=== PATIENT | female | born 1995 ===

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

== ENCOUNTER 2017-01-21 11:33 | Emergency (ER) | payer OTHER ==
[2017-01-21 11:39] VITALS: BMI 26.2
[2017-01-21 12:18] VITALS: PULSE 88; RESP 18; TEMP 97.9
[2017-01-21 12:20] VITALS: O2SAT 100
--- NOTE | 2017-01-21 12:20 | ED PDOC ---
HPI: General Adult Time Seen by Provider: 01/21/17 12:10 Chief Complaint (Provider): Abscess on Left Groin History Per: Patient History/Exam Limitations: no limitations Current Symptoms Are (Timing): Still Present Additional Complaint(s): Hilary Santiago is a 22 year old female that presents to the ED with a chief complaint of an abscess present on her left groin. Patient reports that she has a history of abscesses in that area, and rates her current current pain to be a 10/10. Abscess has been presents for one week. Patient denies any fever, chills or active drainage. Past Medical History Reviewed: Historical Data, Nursing Documentation, Vital Signs Vital Signs: Last Vital Signs Temp 97.9 F 01/21/17 12:16 Pulse 88 01/21/17 12:16 Resp 18 01/21/17 12:16 BP 99/52 L 01/21/17 12:21 Pulse Ox 100 01/21/17 13:15 - Medical History PMH: No Chronic Diseases - Family History Family History: States: No Known Family Hx - Living Arrangements Living Arrangements: With Family - Social History Current smoker - smoking cessation education provided: Yes Alcohol: None Drugs: Denies - Immunization History Hx Tetanus Toxoid Vaccination: Yes - Home Medications Home Medications: Ambulatory Orders Medication Instructions Recorded Multivit/Folic Acid/I 1 tab PO DAILY 10/08/15 [ Plus] Docusate [Colace] 100 mg PO BID #60 cap 02/26/16 Ferrous Sulfate [Feosol] 325 mg PO BID #60 tab 02/26/16 Ibuprofen [Motrin Tab] 600 mg PO Q6 PRN #40 tab 02/26/16 traMADol [Ultram] 50 mg PO Q6 #16 tab 03/03/16 Clindamycin [Cleocin] 300 mg PO Q6 #28 cap 11/22/16 Ibuprofen [Motrin Tab] 1 tab PO Q6 PRN #20 tab 11/23/16 Clindamycin [Cleocin] 300 mg PO TID #21 cap 01/21/17 Ibuprofen [Motrin Tab] 800 mg PO Q8 PRN #20 tab 01/21/17 traMADol [Ultram] 50 mg PO TID PRN #15 tab 01/21/17 - Allergies Allergies/Adverse Reactions: Allergies Allergy/AdvReac Type Severity Reaction Status Date / Time No Known Allergies Allergy Verified 11/22/16 18:26 Review of Systems ROS Statement: Except As Marked, All Systems Reviewed And Found Negative Constitutional: Negative for: Fever, Chills Skin: Positive for: Other (Abscess present to left groin area) Physical Exam - Reviewed Nursing Documentation Reviewed: Yes Vital Signs Reviewed: Yes - Physical Exam Appears: Positive for: Non-toxic, No Acute Distress Head Exam: Positive for: ATRAUMATIC, NORMOCEPHALIC Skin: Positive for: Normal Color, Warm. Negative for: Rash Eye Exam: Positive for: Normal appearance, EOMI, PERRL Pelvic Exam: Positive for: Other (3 cm fluctuant abscess present to left groin area with no active drainage. Localized erythema with no erythematous streaking. ) Extremity: Positive for: Normal ROM Neurologic/Psych: Positive for: Alert, Oriented. Negative for: Motor/Sensory Deficits - Laboratory Results Urine POC: Negative - ECG O2 Sat by Pulse Oximetry: 100 (RA) Pulse Ox Interpretation: Normal Medical Decision Making Medical Decision Making: Impression: Abscess Present to Left Groin Area Plan: * Urine test * I&D * PO tramadol and clindamycin * IM toradol 13:05 Performed I&D on abscess, patient tolerated procedure well with no immediate complications. Patient advised to keep packing in place and to change outer gauze only. Patient given Rx for Clindamycin, Toradol, and Ultram, and advised to return to ED in 2 days. Stable for discharge home. Scribe Attestation: Documented by Sheila Montoya, acting as a scribe for Ann Hoffmann PA-C. Provider Scribe Attestation: All medical record entries made by the Scribe were at my direction and personally dictated by me. I have reviewed the chart and agree that the record accurately reflects my personal performance of the history, physical exam, medical decision making, and the department course for this patient. I have also personally directed, reviewed, and agree with the discharge instructions and disposition. Procedures - Incision and Drainage Site: Left groin area Blade Size: 11 I & D Procedure: betadine prep (+ 2% lido w/ epi, 10 ccs), sterile drapes applied, sterile dressing applied Progress: Under sterile conditions, abscess was anesthetized with 10 cc of lidocaine with epi, good anesthesia was achieved. A small incision was made overlying area of fluctuance, moderate amount of purulent discharge was expressed. Wound was then explored for loculations using curved hemostat, additional small amount of discharge expressed. Wound was then irrigated with saline and betadine and then packed with 1/2 iodoform packing. Sterile dressing applied. Procedure was tolerated well by patient with no immediate complications. Disposition - Clinical Impression Clinical Impression: Abscess - Patient ED Disposition Is Patient to be Admitted: No Counseled Patient/Family Regarding: Diagnosis, Need For Followup, Rx Given - Disposition Referrals: [facility] [Outside] Disposition: Routine/Home Disposition Time: 13:05 Condition: STABLE Additional Instructions: Keep packing in place and change outer gauze only. Take rx meds as directed. Return in 2 days for wound re-check and packing removal. Prescriptions: Clindamycin [Cleocin] 300 mg PO TID #21 cap Ibuprofen [Motrin Tab] 800 mg PO Q8 PRN #20 tab PRN Reason: Pain, Moderate (4-7) traMADol [Ultram] 50 mg PO TID PRN #15 tab PRN Reason: Pain, Moderate (4-7) Instructions: Breast Abscess Drainage (ED), Abscess (ED)
[2017-01-21 12:22] VITALS: BP 99/52
[2017-01-21] MEDS ORDERED: Lidocaine 2% w Epi 1:100,000 Inj IJ ONE (12:23)
[2017-01-21] MEDS ORDERED: Lidocaine 2% w Epi 1:100,000 Inj IJ STA (12:27)
[2017-01-21] MEDS ORDERED: Iodoform 1/2inx15ft BOT EXT ONE (12:36)
== END 2017-01-21 13:13 | disposition home or self-care (01) ==
LOC: H.ER 11:33
DX: L02.214 Cutaneous abscess of groin (principal)
CPT/HCPCS: 81025; 96372; 99283; J1885

== ENCOUNTER 2017-05-22 22:46 | Emergency (ER) | payer OTHER ==
[2017-05-22 22:46] VITALS: BMI 26.2
[2017-05-22 23:03] VITALS: BP 109/72; PULSE 87; RESP 17; TEMP 99.7; O2SAT 99
--- NOTE | 2017-05-22 23:25 | ED PDOC ---
HPI: CCC, URI, Sore Throat Time Seen by Provider: 05/22/17 23:06 Chief Complaint (Nursing): ENT Problem History Per: Patient History/Exam Limitations: no limitations Onset/Duration Of Symptoms: Days (4) Additional Complaint(s): 22 yo F s/p dental extraction of L upper and lower wisdom teeth 4 days ago, c/o continued pain despite taking motrin, states that she did see her dentist again today regarding her symptoms and was Rx a muscle relaxer. Denies any headache, fever, chills, throat pain / swelling, SOB, dsypnea. Has no other complaints. Past Medical History Vital Signs: Last Vital Signs Temp 99.7 F H 05/22/17 22:59 Pulse 87 05/22/17 22:59 Resp 17 05/22/17 22:59 BP 109/72 05/22/17 22:59 Pulse Ox 99 05/22/17 22:59 - Medical History PMH: No Chronic Diseases - Family History Family History: States: Unknown Family Hx - Immunization History Hx Tetanus Toxoid Vaccination: Yes Hx Influenza Vaccination: No Hx Pneumococcal Vaccination: No - Home Medications Home Medications: Ambulatory Orders Medication Instructions Recorded Multivit/Folic Acid/I 1 tab PO DAILY 10/08/15 [ Plus] Docusate [Colace] 100 mg PO BID #60 cap 02/26/16 Ferrous Sulfate [Feosol] 325 mg PO BID #60 tab 02/26/16 Ibuprofen [Motrin Tab] 600 mg PO Q6 PRN #40 tab 02/26/16 traMADol [Ultram] 50 mg PO Q6 #16 tab 03/03/16 Clindamycin [Cleocin] 300 mg PO Q6 #28 cap 11/22/16 Ibuprofen [Motrin Tab] 1 tab PO Q6 PRN #20 tab 11/23/16 Clindamycin [Cleocin] 300 mg PO TID #21 cap 01/21/17 Ibuprofen [Motrin Tab] 800 mg PO Q8 PRN #20 tab 01/21/17 traMADol [Ultram] 50 mg PO TID PRN #15 tab 01/21/17 traMADol [Ultram] 50 mg PO TID PRN #12 tab 05/22/17 - Allergies Allergies/Adverse Reactions: Allergies Allergy/AdvReac Type Severity Reaction Status Date / Time No Known Allergies Allergy Verified 11/22/16 18:26 Review of Systems Constitutional: Negative for: Fever, Chills, Malaise ENT: Positive for: Mouth Pain, Other (dental pain). Negative for: Ear Pain, Nose Discharge, Mouth Swelling, Throat Pain Cardiovascular: Negative for: Chest Pain, Palpitations Respiratory: Negative for: Cough, Shortness of Breath Musculoskeletal: Negative for: Neck Pain Skin: Negative for: Rash, Lesions Physical Exam - Physical Exam Appears: Positive for: Well, Non-toxic, In Acute Distress (mild painful distress ) Skin: Positive for: Normal Color, Warm, Dry ENT: Positive for: Normal ENT Inspection, TM Is/Are (wnl), Other (+mild edema to the gum line of the upper and lower molars with no evidence of infection). Negative for: Pharyngeal Erythema, Tonsillar Exudate, Tonsillar Swelling Neck: Positive for: Normal, Supple Cardiovascular/Chest: Positive for: Regular Rate, Rhythm Respiratory: Positive for: Normal Breath Sounds. Negative for: Rales, Rhonchi, Wheezing - ECG O2 Sat by Pulse Oximetry: 99 Medical Decision Making Medical Decision Making: Patient medicated with tramadol 50 mg PO. Advised to follow up with her dentist tomorrow without fail. Advised to take medication as prescribed. Return to the emergency room at any time for any new or worsening symptoms. Patient states she fully agrees with and understands discharge instructions. States that she agrees with the plan and disposition. Verbalized and repeated discharge instructions and plan. I have given the patient opportunity to ask any additional questions. Disposition - Clinical Impression Clinical Impression: Pain, dental - Patient ED Disposition Is Patient to be Admitted: No Counseled Patient/Family Regarding: Diagnosis, Need For Followup, Rx Given - Disposition Disposition: Routine/Home Disposition Time: 23:30 Condition: STABLE Additional Instructions: Thank you for letting us take care of you today. You were treated for dental pain. The emergency medical care you received today was directed at your acute symptoms. If you were prescribed any medication, please fill it and take as directed. It may take several days for your symptoms to resolve. Return to the Emergency Department if your symptoms worsen, do not improve, or if you have any other problems. Please contact your dentist tomorrow for re-evaluation and follow up. Bring any paperwork you were given at discharge with you along with any medications you are taking to your follow up visit. Our treatment cannot replace ongoing medical care by a primary care provider (PCP) outside of the emergency department. Thank you for allowing the [facility] team to be part of your care today. 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
== END 2017-05-22 23:30 | disposition home or self-care (01) ==
LOC: H.ER 22:46
DX: K08.89 Other specified disorders of teeth and supporting structures (principal)

== ENCOUNTER 2017-07-06 07:18 | Emergency (ER) | payer OTHER ==
[2017-07-06 07:18] VITALS: BMI 26.2
[2017-07-06 08:50] LABS: BASO % 0.3 % (0.0-2.0); EOS # 0.1 K/uL (0.0-0.7); HEMOGLOBIN 11.7 g/dL (12.0-16.0); LYMPH # 2.8 K/uL (1.0-4.3); LYMPH % 38.8 % (20.0-40.0); MEAN CELL VOLUME 85.3 fl (81.0-99.0); MEAN CORPUSCULAR HEMOGLOBIN 28.9 pg (27.0-31.0); MEAN CORPUSCULAR HGB CONC 33.8 g/dL (33.0-37.0); MEAN PLATELET VOLUME 10.3 fl (7.2-11.7); MONO # 0.6 K/uL (0.0-0.8); MONO % 8.5 % (0.0-10.0); NEUT # 3.7 K/uL (1.8-7.0); NEUT % 50.4 % (50.0-75.0); NRBC % 0.2 % (0.0-0.0); RBC 4.06 Mil/uL (3.80-5.20); RED CELL DISTRIBUTION WIDTH 13.4 % (11.5-14.5); WHITE BLOOD COUNT 7.2 K/uL (4.8-10.8)
[2017-07-06 09:02] LABS: BLOOD UREA NITROGEN 17 mg/dl (7-17); CALCIUM 9.1 mg/dL (8.4-10.2); GFR AFRICAN-AMERICAN > 60; GFR NON-AFRICAN AMERICAN > 60
--- NOTE | 2017-07-06 09:02 | ED PDOC ---
HPI: Abdomen Time Seen by Provider: 07/06/17 07:37 Chief Complaint (Nursing): Abdominal Pain Chief Complaint (Provider): Abdominal pain History Per: Patient History/Exam Limitations: no limitations Onset/Duration Of Symptoms: Days (x1) Current Symptoms Are (Timing): Still Present Location Of Pain/Discomfort: Suprapubic Quality Of Discomfort: Cramping, "Pain" Associated Symptoms: denies: Fever, Chills, Nausea, Vomiting, Diarrhea, Back Pain Additional Complaint(s): Hilary Santiago is a 22 year old female, with no significant past medical history, who was brought to the emergency department via EMS for a crampy suprapubic abdominal pain onset since last night. Patient is currently on the first day of her menstrual period and states it's regular. She reports last night the pain was so severe she couldn't get up from bed and couldn't sleep. She took Tylenol at 23:00 yesterday and Ibuprofen at 03:00 today with no relief of symptoms. She denies any fever, chills, nausea, vomit, diarrhea, abnormal vaginal bleeding or back pain. No further medical complaints. PMD: None provided. Abnormal Vaginal Bleeding: No Past Medical History Reviewed: Historical Data, Nursing Documentation, Vital Signs Vital Signs: Last Vital Signs Temp 98.2 F 07/06/17 14:52 Pulse 79 07/06/17 14:52 Resp 19 07/06/17 14:52 BP 107/68 07/06/17 14:52 Pulse Ox 99 07/06/17 14:52 - Medical History PMH: No Chronic Diseases - Surgical History Surgical History: No Surg Hx - Family History Family History: States: Unknown Family Hx - Social History Current smoker - smoking cessation education provided: Yes (Heavy smoker >10 cigarettes daily) Alcohol: None Drugs: Denies - Immunization History Hx Tetanus Toxoid Vaccination: Yes Hx Influenza Vaccination: No Hx Pneumococcal Vaccination: No - Home Medications Home Medications: Ambulatory Orders Medication Instructions Recorded Multivit/Folic Acid/I 1 tab PO DAILY 10/08/15 [ Plus] Docusate [Colace] 100 mg PO BID #60 cap 02/26/16 Ferrous Sulfate [Feosol] 325 mg PO BID #60 tab 02/26/16 Ibuprofen [Motrin Tab] 600 mg PO Q6 PRN #40 tab 02/26/16 traMADol [Ultram] 50 mg PO Q6 #16 tab 03/03/16 Clindamycin [Cleocin] 300 mg PO Q6 #28 cap 11/22/16 Ibuprofen [Motrin Tab] 1 tab PO Q6 PRN #20 tab 11/23/16 Clindamycin [Cleocin] 300 mg PO TID #21 cap 01/21/17 Ibuprofen [Motrin Tab] 800 mg PO Q8 PRN #20 tab 01/21/17 traMADol [Ultram] 50 mg PO TID PRN #15 tab 01/21/17 traMADol [Ultram] 50 mg PO TID PRN #12 tab 05/22/17 - Allergies Allergies/Adverse Reactions: Allergies Allergy/AdvReac Type Severity Reaction Status Date / Time No Known Allergies Allergy Verified 07/06/17 07:27 Review of Systems ROS Statement: Except As Marked, All Systems Reviewed And Found Negative Constitutional: Negative for: Fever, Chills Gastrointestinal: Positive for: Abdominal Pain (suprapubic, crampy). Negative for: Nausea, Vomiting, Diarrhea Genitourinary Female: Negative for: Vaginal Bleeding Musculoskeletal: Negative for: Back Pain Physical Exam - Reviewed Nursing Documentation Reviewed: Yes Vital Signs Reviewed: Yes - Physical Exam Appears: Positive for: Well, Non-toxic, No Acute Distress Head Exam: Positive for: ATRAUMATIC, NORMAL INSPECTION, NORMOCEPHALIC Skin: Positive for: Normal Color, Warm, Dry Eye Exam: Positive for: Normal appearance Neck: Positive for: Painless ROM, Supple Cardiovascular/Chest: Positive for: Regular Rate, Rhythm. Negative for: Murmur Respiratory: Positive for: Normal Breath Sounds (clear to auscultation). Negative for: Respiratory Distress Gastrointestinal/Abdominal: Positive for: Tenderness (suprapubic, mainly LLQ tenderness) Back: Positive for: Normal Inspection. Negative for: L CVA Tenderness, R CVA Tenderness, Vertebral Tenderness Extremity: Positive for: Normal ROM (all extremities). Negative for: Tenderness , Deformity, Swelling Neurologic/Psych: Positive for: Alert, Oriented. Negative for: Motor/Sensory Deficits - Laboratory Results Result Diagrams: 07/06/17 08:32 07/06/17 08:32 - ECG O2 Sat by Pulse Oximetry: 100 (RA) Pulse Ox Interpretation: Normal - Progress Re-evaluation Time: 13:50 Condition: Re-examined, Improved Medical Decision Making Medical Decision Making: Initial Impression: Abdominal pain, vaginal bleeding. Differential includes dysmenorrhea, uterine fibroids, ovarian cysts, and ovarian torsion. Initial Plan: --BMP --Urine dipstick --Urine --CBC w/ differential --Ultram 50 mg PO --Pelvis/Transvag US [US] --Reevaluation 13:41 Pelvis/Transvag US FINDINGS: The uterus is anteverted measuring approximate 7.5 x 4.4 x 3.2. Endometrial stripe measures 3.6 mm. Amount free fluid seen in the cul de sac. Right ovary measures 3.5 x 2.8 x 1.8 cm and exhibits arterial flow. Multiple follicular cysts are present. Left ovary measures approximately 3.1 x 3.0 x 1.9 cm and also exhibits arterial flow. Multiple follicular cysts are also present. IMPRESSION: Small amount of fluid seen within cul de sac. Scribe Attestation: Documented by Dariusz Samayoa, acting as a scribe for Chris Morales MD Provider Scribe Attestation: All medical record entries made by the Scribe were at my direction and personally dictated by me. I have reviewed the chart and agree that the record accurately reflects my personal performance of the history, physical exam, medical decision making, and the department course for this patient. I have also personally directed, reviewed, and agree with the discharge instructions and disposition. Disposition - Clinical Impression Clinical Impression: Ruptured ovarian cyst, Pelvic pain - Patient ED Disposition Is Patient to be Admitted: No Doctor Will See Patient In The: Office Counseled Patient/Family Regarding: Studies Performed, Diagnosis, Need For Followup - Disposition Referrals: [facility] [Outside] Disposition: Routine/Home Disposition Time: 14:00 Condition: GOOD Additional Instructions: Take motrin for pain. Follow up with your PCP in 2-3 days. Instructions: Acute Pelvic Pain (DC)
--- NOTE | 2017-07-06 13:43 | US ---
PROCEDURE: Pelvic ultrasound dated 07/06/2017 HISTORY: Pelvic pain menstrual period COMPARISON: Comparison made with prior study dated 09/09/2015 TECHNIQUE: Transabdominal sonographic evaluation of the pelvis performed FINDINGS: The uterus is anteverted measuring approximate 7.5 x 4.4 x 3.2. Endometrial stripe measures 3.6 mm. Amount free fluid seen in the cul de sac. Right ovary measures 3.5 x 2.8 x 1.8 cm and exhibits arterial flow. Multiple follicular cysts are present. Left ovary measures approximately 3.1 x 3.0 x 1.9 cm and also exhibits arterial flow. Multiple follicular cysts are also present. IMPRESSION: Small amount of fluid seen within cul de sac.
[2017-07-06 14:52] VITALS: BP 107/68; PULSE 79; RESP 19; TEMP 98.2
[2017-07-07 22:35] VITALS: O2SAT 100
== END 2017-07-06 14:53 | disposition home or self-care (01) ==
LOC: H.ER 07:18
DX: N83.299 Other ovarian cyst, unspecified side (principal); N93.9 Abnormal uterine and vaginal bleeding, unspecified

== ENCOUNTER 2018-06-23 13:22 | Emergency (ER) | payer MEDICAID, OTHER ==
[2018-06-23 13:23] VITALS: BMI 26.2
[2018-06-23 13:28] VITALS: O2SAT 100
[2018-06-23] MEDS ORDERED: Tdap Vaccine 0.5 ml Vial (10-64 yrs) IM ONE ×2 (14:19→14:27)
--- NOTE | 2018-06-23 14:22 | ED PDOC ---
HPI: General Adult Time Seen by Provider: 06/23/18 14:19 Chief Complaint (Nursing): Abnormal Skin Integrity Chief Complaint (Provider): left inguinal region intermittent draining wound History Per: Patient (23 y/o female here for complaint of left inguinal region with intermittent wound infection with drainage on and off x 2 months. Notes additional sore throat pain x 2 months. Denies any fevers/chills.) Past Medical History Reviewed: Historical Data, Nursing Documentation, Vital Signs Vital Signs: Last Vital Signs Temp 97.5 F L 06/23/18 13:24 Pulse 66 06/23/18 13:24 Resp 16 06/23/18 13:24 BP 106/65 06/23/18 13:24 Pulse Ox 100 06/23/18 13:24 - Family History Family History: States: Unknown Family Hx - Immunization History Hx Tetanus Toxoid Vaccination: Yes Hx Influenza Vaccination: No Hx Pneumococcal Vaccination: No - Home Medications Home Medications: Ambulatory Orders Medication Instructions Recorded Sulfamethoxazole/Trimethoprim 1 tab PO BID #9 tab 03/11/18 [Bactrim DS 800 mg-160 mg] Cephalexin [Keflex] 500 mg PO TID #21 capsule 06/23/18 Ibuprofen [Motrin] 600 mg PO Q8 PRN #21 tab 06/23/18 Sulfamethoxazole/Trimethoprim 2 tab PO BID #28 tab 06/23/18 [Bactrim DS 800 mg-160 mg] - Allergies Allergies/Adverse Reactions: Allergies Allergy/AdvReac Type Severity Reaction Status Date / Time No Known Allergies Allergy Verified 06/23/18 13:24 Review of Systems ROS Statement: Except As Marked, All Systems Reviewed And Found Negative Physical Exam - Reviewed Nursing Documentation Reviewed: Yes Vital Signs Reviewed: Yes - Physical Exam Appears: Positive for: Well, Non-toxic, No Acute Distress Head Exam: Positive for: ATRAUMATIC, NORMAL INSPECTION, NORMOCEPHALIC Skin: Positive for: Warm. Negative for: Normal Color (left inguinal region without erythema/swelling noted. two separate wounds noted with no current drainage. Mild induration surrounding wound.) Eye Exam: Positive for: EOMI, Normal appearance, PERRL ENT: Positive for: Pharynx Is (petecchaie). Negative for: Normal ENT Inspection Neck: Positive for: Normal, Painless ROM Cardiovascular/Chest: Positive for: Regular Rate, Rhythm Respiratory: Positive for: CNT, Normal Breath Sounds Gastrointestinal/Abdominal: Positive for: Normal Exam, Soft Back: Positive for: Normal Inspection Extremity: Positive for: Normal ROM Neurological/Psych: Positive for: Awake, Alert, Normal Tone - ECG O2 Sat by Pulse Oximetry: 100 - Progress ED Course And Treament: Tdap 0.5 ml IM x 1 dose rapid strep neg Disposition - Clinical Impression Clinical Impression: Abscess - Patient ED Disposition Is Patient to be Admitted: No - Disposition Disposition: Routine/Home Disposition Time: 15:04 Condition: FAIR Prescriptions: Cephalexin [Keflex] 500 mg PO TID #21 capsule Ibuprofen [Motrin] 600 mg PO Q8 PRN #21 tab PRN Reason: Pain, Moderate (4-7) Sulfamethoxazole/Trimethoprim [Bactrim DS 800 mg-160 mg] 2 tab PO BID #28 tab Instructions: Skin Abscess
[2018-06-23 15:22] VITALS: BP 110/68; PULSE 69; RESP 14; TEMP 97.8
== END 2018-06-23 15:21 | disposition home or self-care (01) ==
LOC: H.ER 13:22
DX: L02.214 Cutaneous abscess of groin (principal); Z23 Encounter for immunization

== ENCOUNTER 2018-07-14 15:45 | Emergency (ER) | payer OTHER ==
[2018-07-14 15:45] VITALS: BMI 26.2
[2018-07-14 15:51] VITALS: BP 92/55; PULSE 78; RESP 20; TEMP 98.6; O2SAT 98
--- NOTE | 2018-07-14 16:39 | ED PDOC ---
HPI: Abdomen Time Seen by Provider: 07/14/18 15:57 Chief Complaint (Nursing): Abdominal Pain Chief Complaint (Provider): Abdominal Pain History Per: Patient History/Exam Limitations: no limitations Onset/Duration Of Symptoms: Hrs (x1) Current Symptoms Are (Timing): Still Present Additional Complaint(s): 23 y/o female presents to the ED for evaluation of abdominal pain. Patient reports of developing sudden onset pelvic pain just one hour prior to arrival. Patient describes pain as sharp and constant. Patient states pain is slightly worse on the left side. Patient notes pain is similar to a previous episode of ovarian cyst rupture. Of note, patient reports that at the time of the previous ovarian cyst rupture, she was given instructions to follow up with a Gyneco logist. Patient states she has not followed up with core composer feeder. Otherwise, patient denies nausea, vomiting, diarrhea, constipation, vaginal discharge, vaginal bleeding, dysuria, hematuria and frequency. PMD: no provider [employer]: no provider LNMP: June 30, 2018 Past Medical History Reviewed: Historical Data, Nursing Documentation, Vital Signs Vital Signs: Last Vital Signs Temp 98.6 F 07/14/18 15:48 Pulse 78 07/14/18 15:48 Resp 20 07/14/18 15:48 BP 92/55 L 07/14/18 15:48 Pulse Ox 98 07/14/18 15:48 - Medical History PMH: No Chronic Diseases - Surgical History Surgical History: No Surg Hx - Family History Family History: States: Other Other Family History: Mother had ovarian cancer - Social History Current smoker - smoking cessation education provided: No Alcohol: None Drugs: Cannabis - Immunization History Hx Tetanus Toxoid Vaccination: Yes Hx Influenza Vaccination: No Hx Pneumococcal Vaccination: No - Home Medications Home Medications: Ambulatory Orders Medication Instructions Recorded Sulfamethoxazole/Trimethoprim 1 tab PO BID #9 tab 03/11/18 [Bactrim DS 800 mg-160 mg] Cephalexin [Keflex] 500 mg PO TID #21 capsule 06/23/18 Ibuprofen [Motrin] 600 mg PO Q8 PRN #21 tab 06/23/18 Sulfamethoxazole/Trimethoprim 2 tab PO BID #28 tab 06/23/18 [Bactrim DS 800 mg-160 mg] Ibuprofen [Motrin Tab] 600 mg PO Q8 PRN #60 tab 07/14/18 - Allergies Allergies/Adverse Reactions: Allergies Allergy/AdvReac Type Severity Reaction Status Date / Time No Known Allergies Allergy Verified 07/14/18 15:48 Review of Systems ROS Statement: Except As Marked, All Systems Reviewed And Found Negative (as per HPI) Gastrointestinal: Positive for: Abdominal Pain. Negative for: Nausea, Vomiting, Diarrhea, Constipation Genitourinary Female: Positive for: Pelvic Pain. Negative for: Dysuria, Frequency, Hematuria, Vaginal Discharge, Vaginal Bleeding Physical Exam - Reviewed Nursing Documentation Reviewed: Yes Vital Signs Reviewed: Yes - Physical Exam Appears: Positive for: In Acute Distress (mild painful distress) Head Exam: Positive for: ATRAUMATIC, NORMOCEPHALIC Skin: Positive for: Warm, Dry Neck: Positive for: Painless ROM, Supple Respiratory: Negative for: Respiratory Distress Gastrointestinal/Abdominal: Positive for: Soft, Tenderness (suprapubic tenderness to palpation). Negative for: Mass, Guarding, Rebound Back: Positive for: Normal Inspection. Negative for: L CVA Tenderness, R CVA Tenderness Extremity: Positive for: Normal ROM. Negative for: Deformity Lymphatic: Negative for: Adenopathy Neurological/Psych: Positive for: Awake, Alert, Mood/Affect (anxious mood and affect) - ECG O2 Sat by Pulse Oximetry: 98 (RA) Pulse Ox Interpretation: Normal Medical Decision Making Medical Decision Making: Time: 1558 Impression: Pelvic Pain Differentials include but not limited to ovarian cysts, ovarian torsion, ovarian rupture, dyspepsia, enteritis or Plan: -- Urine Drug Screen -- ED Urine -- ED Urine Dipstick Name: GABBY SCHAFFER Exam Date: Jul 14, 2018 6:01:24 PM EDT Modality Type: SD\US\OT\AK\SR Description: US - TRANSVAGINAL Gender: F Laterality: Not applicable : 97 Referring Physician: Ann Maldonado EXAM: US Pelvis, Complete Transvaginal and Transabdominal COMPARISON: None provided. CLINICAL HISTORY: Severe pelvic pain, r/o rupture/torsion TECHNIQUE: Transvaginal and transabdominal pelvic ultrasound (complete) with image documentation. FINDINGS: ENDOMETRIUM: Normal thickness. UTERUS/CERVIX: The uterus appears within normal limits. No uterine fibroid or other mass evident. RIGHT OVARY: Normal Doppler flow. Small right ovarian cyst measuring 1 x 0.7 x 0.8 cm. LEFT OVARY: Normal Doppler flow. Left ovarian cyst measuring 2.3 x 2 cm. FREE FLUID: No free fluid. IMPRESSION: No suspicious uterine mass. Small bilateral ovarian cysts. Electronically signed on Jul 14, 2018 7:36:06 PM EDT by: Golden Larios M.D., Certified by [facility], Diagnostic Radiology [id number] On reeval pt feeling better. DW pt findings and need to followup OB. Pt has appointment later this month. Scribe Attestation: Documented by Josee Phillips, acting as a scribe Dulce Maria Maldonado MD. Provider Scribe Attestation: All medical record entries made by the Scribe were at my direction and personally dictated by me. I have reviewed the chart and agree that the record accurately reflects my personal performance of the history, physical exam, medical decision making, and the department course for this patient. I have also personally directed, reviewed, and agree with the discharge instructions and disposition. Disposition - Clinical Impression Clinical Impression: Ovarian cyst Counseled Patient/Family Regarding: Studies Performed, Diagnosis, Need For Followup, Rx Given - Disposition Referrals: Darío Silva [Medical Doctor] - Disposition: Routine/Home Disposition Time: 19:59 Condition: STABLE Prescriptions: Ibuprofen [Motrin Tab] 600 mg PO Q8 PRN #60 tab PRN Reason: Pain, Moderate (4-7) Instructions: Ovarian Cyst (DC) Forms: [facility] ED School/Work Excuse
[2018-07-14 17:09] LABS: BARBITURATES, UR NEGATIVE (NEGATIVE); BENZODIAZEPINES, UR NEGATIVE (NEGATIVE); OPIATES, UR NEGATIVE (NEGATIVE); PHENCYCLIDINE, UR NEGATIVE (NEGATIVE)
[2018-07-14 18:51] LABS: SQUAMOUS EPITHIAL 16 /hpf (0-5); URINE BILIRUBIN NEGATIVE (NEGATIVE); URINE CLARITY CLOUDY (Clear); URINE COLOR YELLOW (YELLOW); URINE GLUCOSE (UA) NEG (NEGATIVE); URINE LEUKOCYTE ESTERASE TRACE Leu/uL (Negative); URINE PROTEIN 30 mg/dL (NEGATIVE); URINE UROBILINOGEN 0.2-1.0 mg/dL (0.2-1.0)
[2018-07-14 19:06] LABS: URINE BLOOD TRACE (NEGATIVE)
--- NOTE | 2018-07-15 08:38 | US ---
Date of service: 07/14/2018 HISTORY: severe pelvic pain r/o rupture/torsion COMPARISON: Pelvic ultrasound dated 07/06/2017. TECHNIQUE: Grayscale, color Doppler and spectral evaluation the pelvis performed transvaginally FINDINGS: UTERUS: Measures 6.1 x 2.8 x 4.8 cm. Normal in size and appearance. No fibroid or other mass lesion seen. ENDOMETRIUM: Measures 9 mm in diameter. Unremarkable. CERVIX: No cervical abnormality identified. RIGHT OVARY: Measures 4.2 x 1.8 x 2.2 cm. Dominant follicle measuring 1.0 x 0.7 x 0.8 cm. Normal flow. LEFT OVARY: Measures 4.0 x 2.7 x 2.4 cm. Dominant follicle measuring 2.3 x 1.6 x 2.0 cm. Normal flow. FREE FLUID: No significant free fluid noted. OTHER FINDINGS: None. IMPRESSION: Unremarkable pelvic ultrasound.
== END 2018-07-14 20:10 | disposition home or self-care (01) ==
LOC: H.ER 15:45
DX: N83.201 Unspecified ovarian cyst, right side (principal); N83.202 Unspecified ovarian cyst, left side
CPT/HCPCS: 76830; 80324; 80345; 80346; 80349; 80353; 80358; 80361; 81003; 81025; 83992; 96372; 99283; J1885